=== PATIENT | male | born 2000 ===

== ENCOUNTER 2024-10-20 10:22 | Outpatient (CLI) | payer OTHER, SELFPAY ==
--- NOTE | ~2024-10-20 | XR_ITS ---
EXAMINATION: XR sacroiliac joints min 3V DATE: 10/20/2024 11:01 INDICATION: Multiple joint pain. TECHNIQUE: 3 views of the sacroiliac joints on 4 radiographs were obtained. COMPARISON: None. FINDINGS: Alignment is normal. No fracture. The sacroiliac joints are normal. IMPRESSION: 1. Normal sacroiliac joints. Reviewed, dictated and finalized at location A. [employer]SON[employer]ER
== END 2024-10-20 10:23 | disposition home or self-care (01) ==
DX: R53.81 Other malaise (principal); M25.50 Pain in unspecified joint; M79.10 Myalgia, unspecified site
CPT/HCPCS: 72202